=== PATIENT | female | born 1980 | race Caucasian/White ===

== ENCOUNTER 2021-06-28 22:06 | Emergency (ER) | payer MEDICAID, OTHER ==
[~2021-06-28] VITALS: Ht 170.1 cm; Wt 127.2 kg
[2021-06-28] MEDS ORDERED: KETAMINE HCL 100 MG/ML 5 ML VIAL ONE (22:24)
[2021-06-28] MEDS ORDERED: HYDROmorphone 2 MG/ML VIAL (DILAUDID) ONE (22:29)
[2021-06-28] MEDS ORDERED: HYDROmorphone 2 MG/ML VIAL (DILAUDID) IV ONE (22:30)
[2021-06-28] MEDS ORDERED: TRANEXAMIC ACID INJECTION 1,000 MG in NS (IVPB) 50 ML IV ONE (22:30)
[2021-06-28] MEDS ORDERED: KETAMINE HCL 100 MG/ML 5 ML VIAL IV ONE (22:30)
[2021-06-28] MEDS ORDERED: LACTATED RINGERS 1,000 ML IV ONE (22:30)
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
[2021-06-28 22:41] LABS: HEMATOCRIT 37 % (35-52); HEMOGLOBIN 11.8 g/dL (11.5-16.0); MEAN CORPUSCULAR HEMOGLOBIN 25 pg (25-34); MEAN CORPUSCULAR HGB CONC 32 g/dL (32-36); MEAN CORPUSCULAR VOLUME 79 fL (80-99); PLATELET COUNT 279 10^3/uL (130-400); WHITE BLOOD COUNT 11.3 10^3/uL (4.3-11.0)
[2021-06-28] MEDS ORDERED: ceFAZolin INJECTION 1,000 MG in WATER (STERILE) FOR INJECTION 10 ML IV ONE (22:45)
[2021-06-28] MEDS ORDERED: TETANUS,DIPTH,PERTUSS P/F (BOOSTRIX) 0.5 ML VIAL IM ONE (22:45)
[2021-06-28 22:49] LABS: ALBUMIN 3.4 GM/DL (3.2-4.5); CHLORIDE 108 MMOL/L (98-107); POTASSIUM 3.8 MMOL/L (3.6-5.0); SODIUM 142 MMOL/L (135-145)
[2021-06-28 22:50] LABS: CALCIUM 8.8 MG/DL (8.5-10.1)
[2021-06-28 22:51] LABS: GLUCOSE 166 MG/DL (70-105); TOTAL PROTEIN 5.7 GM/DL (6.4-8.2)
[2021-06-28 22:52] LABS: CARBON DIOXIDE 23 MMOL/L (21-32)
[2021-06-28 22:53] LABS: BILIRUBIN,TOTAL 0.2 MG/DL (0.1-1.0)
[2021-06-28 22:55] LABS: ALKALINE PHOSPHATASE 49 U/L (40-136); CREATININE SERUM 0.78 MG/DL (0.60-1.30); GFR ESTIMATED 81
[2021-06-28 22:56] LABS: BILIRUBIN,DIRECT 0.1 MG/DL (0.0-0.3); BILIRUBIN,INDIRECT 0.1 MG/DL; BUN/CREATININE RATIO 17
[2021-06-28 22:58] LABS: ALANINE AMINOTRANSFERASE 27 U/L (0-55)
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
[2021-06-28] MEDS ORDERED: NS IV 1000 ML 1,000 ML IV SCH (23:30)
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
[2021-06-28] MEDS ORDERED: IOHEXOL 350 MG/ML 100 ML (OMNIPAQUE 350) VIAL IV ONE (23:45)
[2021-06-28] MEDS ORDERED: HOLD METFORMIN - RECEIVED CONTRAST 20 ML VIAL IV SCH (23:45)
[2021-06-28] MEDS ORDERED: CATHETER FLUSH 10 ML SYR IV PRN (23:45)
[2021-06-28] MEDS ORDERED: NS 100 ML (IVPB) BAG IV ONE (23:45)
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
[2021-06-29 00:02] VITALS: BP 166/96
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
--- NOTE | 2021-06-29 00:18 | Diagnostic Imaging Report ---
INDICATION: Left knee pain AP, oblique and lateral views of the left knee are obtained. There is apparent laceration along the anterolateral aspect of the knee, however, no fracture or malalignment is identified and there is no evidence of knee joint fluid. IMPRESSION: Probable knee laceration without acute osseous abnormality or radiopaque foreign body. Dictated by: Dictated on workstation # [id number]
[2021-06-29] MEDS ORDERED: HYDROmorphone 2 MG/ML VIAL (DILAUDID) IV ONE (06:15)
== END 2021-06-29 00:02 | disposition short-term general hospital (02) ==
LOC: EDUNIT# 22:06 → ER 22:08
DX: S81.012A Laceration without foreign body, left knee, initial encounter (principal); S27.322A Contusion of lung, bilateral, initial encounter; S93.04XA Dislocation of right ankle joint, initial encounter; Z23 Encounter for immunization; V89.2XXA Person injured in unspecified motor-vehicle accident, traffic, initial encounter
CPT/HCPCS: 70450; 71045; 71260; 72125; 72170; 73562; 73600; 73610; 74177; 80048; 80076; 84703; 85027; 86850; 86900; 86901; 86920; 93005; 93041; 99291; G0480; P9016; 36415; 80320; 90715

== ENCOUNTER 2021-07-24 06:30 | Emergency (ER) | payer MEDICAID ==
[~2021-07-24] VITALS: Ht 172 cm; Wt 127.2 kg
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
--- NOTE | 2021-07-24 08:10 | Diagnostic Imaging Report ---
INDICATION: Pain recent fracture dislocation. Examination: Right ankle 07/24/2021 COMPARISON: 06/28/2021 FINDINGS: 3 views ankle demonstrate normal alignment at the ankle mortise with the talar dome intact. There is a questioned fracture in between the distal fibula and adjacent talus versus superimposition of the osseous structures. There is irregularity noted along the base of the metatarsals or abutting tarsals best seen on the lateral view. CT imaging could better characterize the exact location of the suspected fractures. Surrounding soft tissue swelling is noted. IMPRESSION: 1. Suspected fractures either within the tarsals or adjacent base of the metatarsals CT imaging could provide further characterization. A small fracture line in between the distal fibula and talus not excluded. 2. Diffuse soft tissue swelling. Dictated by: Dictated on workstation # [id number]
[2021-07-24] MEDS ORDERED: ACHD5005 PO (08:28)
[2021-07-24 08:32] VITALS: BP 124/74
== END 2021-07-24 08:32 | disposition home or self-care (01) ==
LOC: EDUNIT# 06:30 → ER 06:31
DX: S91.011A Laceration without foreign body, right ankle, initial encounter (principal); W18.30XA Fall on same level, unspecified, initial encounter
CPT/HCPCS: 73610

== ENCOUNTER 2021-10-17 09:30 | Outpatient (RCR) | payer MEDICAID ==
[~2021-10-17 09:30] MED LIST: ACHD5005 PO
== END 2021-10-18 | disposition home or self-care (01) ==
PROVIDERS: ATTEND Orthopaedic Surgery
DX: S92.211D Displaced fracture of cuboid bone of right foot, subsequent encounter for fracture with routine healing (principal); S93.04XD Dislocation of right ankle joint, subsequent encounter; S93.01XD Subluxation of right ankle joint, subsequent encounter; V89.2XXD Person injured in unspecified motor-vehicle accident, traffic, subsequent encounter

== ENCOUNTER 2021-10-30 13:01 | Outpatient (RCR) | payer MEDICAID | END 2021-11-18 | disposition home or self-care (01) | PROVIDERS: ATTEND Orthopaedic Surgery | DX: S92.211D Displaced fracture of cuboid bone of right foot, subsequent encounter for fracture with routine healing (principal); S93.04XD Dislocation of right ankle joint, subsequent encounter; S93.01XD Subluxation of right ankle joint, subsequent encounter; V89.2XXD Person injured in unspecified motor-vehicle accident, traffic, subsequent encounter; Z98.51 Tubal ligation status ==

== ENCOUNTER 2022-10-10 09:37 | Outpatient (RCR) | payer MEDICAID | END 2022-10-18 | disposition home or self-care (01) | PROVIDERS: ATTEND Podiatrist | DX: M76.821 Posterior tibial tendinitis, right leg (principal); S92.211K Displaced fracture of cuboid bone of right foot, subsequent encounter for fracture with nonunion; X58.XXXD Exposure to other specified factors, subsequent encounter ==

== ENCOUNTER 2022-11-17 08:45 | Outpatient (RCR) | payer MEDICAID | END 2022-11-18 | disposition home or self-care (01) | PROVIDERS: ATTEND Podiatrist | DX: S92.211K Displaced fracture of cuboid bone of right foot, subsequent encounter for fracture with nonunion (principal); M76.821 Posterior tibial tendinitis, right leg ==

== ENCOUNTER 2022-12-12 11:23 | Outpatient (RCR) | payer MEDICAID | END 2022-12-16 | disposition home or self-care (01) | PROVIDERS: ATTEND Podiatrist | DX: S92.211K Displaced fracture of cuboid bone of right foot, subsequent encounter for fracture with nonunion (principal); M76.821 Posterior tibial tendinitis, right leg ==

== ENCOUNTER → 2023-01-16 | Outpatient (RCR) | payer MEDICAID | END | disposition home or self-care (01) | PROVIDERS: ATTEND Podiatrist | DX: M76.821 Posterior tibial tendinitis, right leg (principal); S92.211K Displaced fracture of cuboid bone of right foot, subsequent encounter for fracture with nonunion ==

== ENCOUNTER 2023-01-27 08:56 | Outpatient (RCR) | payer MEDICAID | END 2023-02-05 12:58 | disposition home or self-care (01) | PROVIDERS: ATTEND Podiatrist | DX: M76.821 Posterior tibial tendinitis, right leg (principal); S92.211K Displaced fracture of cuboid bone of right foot, subsequent encounter for fracture with nonunion; X58.XXXD Exposure to other specified factors, subsequent encounter ==

== ENCOUNTER → 2023-08-03 | Outpatient (CLI) | payer MEDICAID ==
[~2023-08-03] VITALS: Ht 170.2 cm; Wt 122.7 kg
[~2023-08-03] MED LIST changes: +LIDOCAINE 1% INJ 10 ML VIAL INJ ONE
--- NOTE | 2023-08-03 14:10 | Diagnostic Imaging Report ---
INDICATION: Right breast architectural distortion. Patient presents for stereotactic biopsy. DETAILS OF THE PROCEDURE: The patient was brought to the stereotactic suite and placed in a chair in a sitting upright position. The right breast was positioned craniocaudal. The area of architectural distortion in the lower medial right breast was stereotactically targeted. All images were viewed on a dedicated workstation. The superior right breast was then prepped and draped in the usual sterile fashion. A Small amount of 1% lidocaine was utilized for local anesthesia. An 8-gauge vacuum-assisted biopsy needle was then advanced from a craniocaudal approach in placed per stereotactic coordinates. A total of four core biopsies was obtained with the vacuum-assisted device. A marker clip was then deployed. The needle was removed and hemostasis was obtained. Post procedure 2D CC and ML mammography was then performed on a dedicated mammographic unit to evaluate clip placement. A clip in the lower slightly medial aspect of the right breast is noted at anterior to mid depth. IMPRESSION: Right breast stereotactic biopsy of architectural distortion in the medial lower portion of the right breast utilizing a vacuum-assisted device. Pathology results are currently pending. Dictated by: Dictated on workstation # [id number]
== END ==
LOC: RAD 10:11
PROVIDERS: ATTEND Family Medicine
DX: R92.8 Other abnormal and inconclusive findings on diagnostic imaging of breast (principal)
CPT/HCPCS: 19081; A4648